=== PATIENT | female | born 1990 | race Caucasian/White ===

== ENCOUNTER 2023-09-01 12:35 | Emergency (ER) | payer BC, SELFPAY ==
[2023-09-01 13:04] VITALS: BP 140/98; PULSE 108; RESP 20; TEMP 38.1; O2SAT 98; BMI 40.9
--- NOTE | 2023-09-01 13:28 | XR_ITS ---
The [address] [address] Patient Name: BRIANA CRONIN MRN: [id number] date: 1990 Sex: F Assigned Patient Location: ER Current Patient Location: ER Accession/Order Number: [id number] Exam Date: 09/01/2023 13:36 Report Date: 09/01/2023 13:52 At the request of: LOW LAROSE Procedure: XR chest 1V EXAM: XR chest 1V HISTORY: Cough COMPARISON: None. TECHNIQUE: AP view of the chest. FINDINGS: The cardiomediastinal silhouette is normal. The lungs are clear. There is no pneumothorax. No pleural effusion is noted. The osseous structures are intact. XR/XR chest 1V IMPRESSION: No acute cardiopulmonary process. Electronically authenticated by: PAU LESTER Date: 09/01/2023 13:52
--- NOTE | 2023-09-01 13:37 | ED.URI1 ---
HPI - URI/Sore Throat General Chief Complaint: Upper Respiratory Infection Stated Complaint: SHORTNESS OF BREATH Time Seen by Provider: 09/01/23 13:28 Source: patient Limitations: no limitations History of Present Illness HPI Narrative: Patient is a 33-year-old female who presents to the emergency department with her father for the evaluation of generalized weakness and upper respiratory symptoms. Patient reports sore throat for the last week and in the last 3 days has developed generalized weakness with no actual syncope, cough and congestion, fevers. She states she does feel short of breath and has pain in the chest with coughing. No medications taken prior to arrival other than Motrin and Tylenol. She is not concerned for . She has had no vomiting or diarrhea. Related Data Previous Rx's Medication Instructions Recorded albuterol sulfate 90 mcg/actuation 2 inh inhalation Q4H PRN shortness 09/01/23 aerosol inhaler of breath or wheezing #8.5 grams vqebfkzxnaldtfw-wwbbqxytpmthpfo-AK 10 ml PO Q6H PRN cold symptoms 09/01/23 2 mg-30 mg-10 mg/5 mL oral syrup #200 mL (Bromfed DM) ondansetron 4 mg disintegrating 4 mg PO Q6H PRN nausea and 09/01/23 tablet vomiting #12 tabs Allergies Allergy/AdvReac Type Severity Reaction Status Date / Time No Known Drug Allergies Allergy Verified 09/01/23 13:10 Review of Systems ROS Constitutional Reports: fever and chills Ears, nose, mouth, and throat Reports: throat pain and nasal congestion Cardiovascular Reports: chest pain Respiratory Reports: shortness of breath, cough and wheezing Gastrointestinal Denies: nausea, vomiting or diarrhea Genitourinary Denies: painful urination Musculoskeletal Denies: back pain Integumentary/Breast Denies: rash Neurological Denies: headache Endocrine Denies: excessive urination PFSH PFSH Social History Smoking status: Never smoker Exam Narrative Exam Narrative: Gen.: Awake, alert, in no distress Head: Normocephalic, atraumatic ENT: Moist mucous membranes, bilateral TMs clear, no pharyngeal erythema with uvula midline. Clear speech. No trismus or drooling Respiratory: No respiratory distress, lungs clear bilaterally; no wheezing or rhonchi Cardio: Regular rate and rhythm Extremities: Moves extremities equally Psych: Normal mood and affect Neuro: No focal neuro deficit Skin: Warm, dry, intact Constitutional Vital Signs, click to edit/add: Last Vital Signs Temp 100.6 F H 09/01/23 13:04 Pulse 108 H 09/01/23 13:04 Resp 20 09/01/23 13:04 BP 140/98 H 09/01/23 13:04 Pulse Ox 98 09/01/23 13:04 O2 Del Method Room Air 09/01/23 13:04 Course Vital Signs Vital signs: Vital Signs Temperature 100.6 F H 09/01/23 13:04 Pulse Rate 108 H 09/01/23 13:04 Respiratory Rate 20 09/01/23 13:04 Blood Pressure 140/98 H 09/01/23 13:04 Pulse Oximetry 98 09/01/23 13:04 Oxygen Delivery Method Room Air 09/01/23 13:04 Temperature 100.6 F H 09/01/23 13:04 Pulse Rate 108 H 09/01/23 13:04 Respiratory Rate 20 09/01/23 13:04 Blood Pressure 140/98 H 09/01/23 13:04 Pulse Oximetry 98 09/01/23 13:04 Oxygen Delivery Method Room Air 09/01/23 13:04 MDM - URI/Sore Throat MDM Narrative Medical decision making narrative: Chest x-ray with no evidence of acute cardiopulmonary changes. Patient medicated with prednisone, Motrin and Tylenol in the ER. She is positive for influenza A, she is discharged home with cough medication, nausea medication and albuterol inhaler as needed. Follow-up with PCP, encourage fluids and return to the emergency department if symptoms change or worsen. Medical Records Attestation: I reviewed the patient's medical records. Lab Data Attestation: I reviewed the patient's lab results. Labs: Lab Results 09/01/23 Range/Units 13:30 SARS-CoV-2 (PCR) Negative (NEGATIVE) Influenza Type A Ag Positive A Influenza Type B Ag Negative Streptococcus Screen Negative Imaging Data Chest x-ray: Attestation: I have reviewed the pertinent imaging results. Radiologist's impression: Procedure: XR chest 1V EXAM: XR chest 1V HISTORY: Cough COMPARISON: None. TECHNIQUE: AP view of the chest. FINDINGS: The cardiomediastinal silhouette is normal. The lungs are clear. There is no pneumothorax. No pleural effusion is noted. The osseous structures are intact. IMPRESSION: No acute cardiopulmonary process. Electronically authenticated by: PAU TAYLER Date: 09/01/2023 13:52 Discharge Plan Discharge Chief Complaint: Upper Respiratory Infection Clinical Impression: Influenza A Patient Disposition: Home, Self-Care Time of Disposition Decision: 14:11 Condition: Good Mode of Transportation: Private Vehicle Prescriptions / Home Meds: New albuterol sulfate 90 mcg/actuation HFA aerosol inhaler 2 inh inhalation Q4H PRN (Reason: shortness of breath or wheezing) Qty: 8.5 0RF rwelbbmproeyqtw-sdsctpiif-SQ [Bromfed DM] 2-30-10 mg/5 mL syrup 10 ml PO Q6H PRN (Reason: cold symptoms) Qty: 200 0RF ondansetron 4 mg tablet,disintegrating 4 mg PO Q6H PRN (Reason: nausea and vomiting) Qty: 12 0RF Instructions: Influenza (ED) Stand Alone Forms: Portal Instructions Referrals: JOEL CEBALLOS [Primary Care Provider] - 1 week Discharge Date/Time: 09/01/23 14:18
[2023-09-01] MEDS: PREDNISONE 20 MG TABLET 60 MG PO (13:57)
[2023-09-01] MEDS: ACETAMINOPHEN 500 MG TABLET 1000 MG PO (13:58)
[2023-09-01] MEDS: KETOROLAC TROMETHAMINE 10 MG TABLET PO (13:58)
[2023-09-01 14:08] LABS: Influenza Virus A Antigen Positive; Influenza Virus B Antigen Negative; Internal Control Within Normal Limits; SARS-CoV-2 Ag NEGATIVE (NEGATIVE); Strep A Antigen Screen Negative
[2023-09-02 15:48] LABS: SARS-CoV-2 NAA INCONCLUSIVE (NOT DETECTE)
== END 2023-09-01 14:18 | disposition home or self-care (01) ==
PROVIDERS: Physician Assistant; Emergency Provider Emergency Medicine; PCP Internal Medicine
DX: J10.1 Influenza due to other identified influenza virus with other respiratory manifestations (principal); Z20.822 Contact with and (suspected) exposure to COVID-19
CPT/HCPCS: 71045; 87070; 87635; 87804; 87811; 87880; 99284